=== PATIENT | female | born 1985 | race American Indian/Alaskan Native ===

== ENCOUNTER 2021-09-21 12:43 | Emergency (ER) | payer MEDICAID ==
[2021-09-21 13:01] VITALS: BP 110/69
[2021-09-21 14:08] LABS: Basophils # (Auto) 0.1 K/mm3 (0.0-0.1); Basophils % (Auto) 0.8 % (0.0-1.8); Eosinophils # (Auto) 0.1 K/mm3 (0.0-0.4); Eosinophils % (Auto) 1.7 % (0.0-4.3); Hematocrit 40.9 % (30.3-42.9); Hemoglobin 13.7 gm/dl (10.1-14.3); Lymphocytes # (Auto) 2.7 K/mm3 (1.2-5.4); Mean Corpuscular HGB Conc 34 % (30-34); Mean Corpuscular Volume 98 fl (79-97); Monocytes # (Auto) 0.9 K/mm3 (0.0-0.8); Monocytes % (Auto) 12.3 % (0.0-7.3); Platelet Count 250 K/mm3 (140-440); Red Blood Count 4.19 M/mm3 (3.65-5.03); Red Cell Distribution Width 13.8 % (13.2-15.2)
--- NOTE | 2021-09-21 14:17 | Emergency Department Report ---
Blank Doc - Documentation Documentation: 36-year-old female who presents with chest pain and shortness of breath. 1- This is a initial triage assessment/medical screening only. Full assessment and work-up will be completed once the patient is in proper hospital gown, ED bed and in a private room setting. This initial assessment/diagnostic orders/clinical plan/ treatment(s) is/are subject to change based on pt's health status, clinical progression and re-assessment by fellow clinical providers in the ED. Further treatment and workup at subsequent clinical providers discretion. Patient/guardians urged not to elope from ED as their condition may be serious if not clinically assessed and managed. 2-cardiac work-up The patient was evaluated in the emergency department for symptoms described in the history of present illness. He/she was evaluated in the context of the global COVID-19 pandemic, which necessitated consideration that the patient might be at risk for infection with the virus that causes COVID-19. Institutional protocols and algorithms that pertain to the evaluation of patients at risk for COVID-19 are in a state of rapid change based on information released by regulatory bodies including the CDC and federal and state organizations. These policies and algorithms were followed during the patient's care in the emergency department. Please note that these policies, procedures and recommendations changed on a rapid basis.
[2021-09-21 14:22] LABS: INR 0.96 (0.87-1.13)
[2021-09-21 14:23] LABS: Alanine Aminotransferase 19 units/L (7-56); Albumin 4.3 g/dL (3.9-5); Blood Urea Nitrogen 11 mg/dL (7-17); Hemolysis Index 5; Partial Thromboplastin Time 30.5 Sec. (24.2-36.6)
--- NOTE | 2021-09-21 14:32 | XRay Report ---
XR chest routine 2V INDICATION / CLINICAL INFORMATION: Chest Pain. COMPARISON: None available. FINDINGS: SUPPORT DEVICES: None. HEART /PULMONARY VASCULATURE: No significant abnormality. LUNGS / PLEURA: No evidence of acute pulmonary or pleural abnormality. No pneumothorax. ADDITIONAL FINDINGS: No significant additional findings. IMPRESSION: 1. No acute findings. Signer Name: Hector Chavez MD Signed: 09/21/2021 2:28 PM Workstation Name: [id number]
[2021-09-21 15:13] LABS: BUN/Creatinine Ratio 18
[2021-09-21] MEDS ORDERED: ASPIRIN 81 MG TAB CHEW PO ONE ×2 (16:01→18:21)
[2021-09-21] MEDS ORDERED: MORPHINE 4 MG/1 ML INJ IV ONE ×2 (16:02→18:21)
[2021-09-21] MEDS ORDERED: ONDANSETRON 4 MG/2 ML INJ IV ONE ×2 (16:02→18:21)
--- NOTE | 2021-09-21 17:37 | Cat Scan Report ---
. CTA CHEST WITH CONTRAST INDICATION / CLINICAL INFORMATION: CHEST PAIN - R/O PE. TECHNIQUE: Axial CT images were obtained through the chest after injection of 80 ml Omnipaque 350 IV contrast. 3 plane MIP and/or 3D reconstructions were produced. All CT scans at this location are perf ormed using CT dose reduction for ALARA by means of automated exposure control. COMPARISON: None available. FINDINGS: PULMONARY EMBOLUS: Positive. Most proximal level of embolus is Right Segmental Pulmonary Artery. Pulm onary embolus seen and subsegmental branches in the right middle lobe. THORACIC AORTA: No significant abnormality. HEART: No significant abnormality. CORONARY ARTERY CALCIFICATION: Absent -- None. MEDIASTINUM / KODI: No significant abnormality. PLEURA: No pleural effusion. No pneumothorax. LUNGS: No acute air space or interstitial disease. ADDITIONAL FINDINGS: None. UPPER ABDOMEN: No acute findings. SKELETAL STRUCTURES: No significant osseous abnormality. IMPRESSION: 1. Small pulmonary embolism seen in the segmental branches in the right middle lobe. 2. No other acute findings. Findings discussed with Dr. Solitario at 4:33 PM central time. Signer Name: Jose Giraldo MD Signed: 09/21/2021 5:33 PM Workstation Name: [id number]
[2021-09-21] MEDS ORDERED: ENOXAPARIN 100 MG/1 ML INJ SUB-Q ONE (18:10)
--- NOTE | 2021-09-21 18:27 | Emergency Department Report ---
ED Chest Pain HPI - General Chief Complaint: Dyspnea/Respdistress Stated Complaint: RT UPPER PAIN Time Seen by Provider: 09/21/21 12:59 Source: patient Mode of arrival: Ambulatory Limitations: No Limitations - History of Present Illness Initial Comments: Patient is a 36-year-old -[place] female with a history of PE on who is not on any anticoagulation presents to the ED with complaint of acute onset persistent right-sided chest pain that radiates to the mid posterior thoracic area for the last 4 days, worse in the last 2 days. Patient states that the pain is worse with any movement or exertion. Patient states that she has not been on any anticoagulation since 2017 because "I did not like giving myself shots". Patient states that she has not followed up with any primary care physician regarding her history of PE. Patient denies dizziness, syncope, shortness of breath, neck pain, palpitation, fever, chills, cough, lightheadedness, dizziness, headache, abdominal pain, nausea and vomiting or diarrhea, traumatic injury or fall. MD Complaint: chest pain (right sided chest pain), other (nausea) -: Sudden, days(s) (2) Onset: during exertion Pain Location: right chest Pain Radiation: back Severity: severe Severity scale (0 -10): 8 Quality: aching, sharp, pressure Consistency: constant Improves With: nothing Worsens With: exertion, inspiration Context: other (h/o PE and not on medication) re: denies: nausea, vomting, diaphoresis, dyspnea, sense of impending doom Other Symptoms: denies: cough, fever, syncope, rash, acid taste in mouth, leg swelling, palpitations, burping Treatments Prior to Arrival: none - Related Data Previous Rx's Medication Instructions Recorded Last Taken Type metroNIDAZOLE [Flagyl] 500 mg PO Q8HR #30 tablet 06/22/15 Unknown Rx Apixaban [Eliquis starter pack] 5 mg PO DAILY #90 tab 09/21/21 Unknown Rx Baclofen 20 mg PO Q12H PRN #20 tab 09/21/21 Unknown Rx traMADoL [Ultram] 50 mg PO Q6HR PRN #15 tablet 09/21/21 Unknown Rx Allergies Allergy/AdvReac Type Severity Reaction Status Date / Time No Known Allergies Allergy Verified 09/21/21 12:59 Heart Score - HEART Score History: Slightly suspicious EKG: Normal Age: < 45 Risk factors: No known risk factors Troponin: < normal limit HEART Score: 0 - EKG Read Time Time EKG Completed: 13:08 EKG Read Time: 13:15 - Critical Actions Critical Actions: 0-3 pts:0.9-1.7%risk of adverse cardiac event.Candidate for discharge ED Review of Systems ROS: Stated complaint: RT UPPER PAIN Other details as noted in HPI Constitutional: denies: chills, fever Eyes: denies: eye pain, eye discharge, vision change ENT: congestion. denies: ear pain, throat pain Respiratory: denies: cough, shortness of breath, wheezing Cardiovascular: chest pain (Right-sided chest pain). denies: palpitations, dyspnea on exertion, edema, syncope, paroxysmal nocturnal dyspnea Endocrine: no symptoms reported Gastrointestinal: denies: abdominal pain, nausea, vomiting, diarrhea Genitourinary: denies: urgency, dysuria, discharge Musculoskeletal: denies: back pain, joint swelling, arthralgia Skin: denies: rash, lesions Neurological: denies: headache, weakness, paresthesias Psychiatric: denies: anxiety, depression Hematological/Lymphatic: denies: easy bleeding, easy bruising ED Past Medical Hx - Past Medical History Previous Medical History?: Yes Hx Pulmonary Embolism: Yes - Surgical History Additional Surgical History: - Social History Smoking Status: Current Every Day Smoker Substance Use Type: Alcohol - Medications Home Medications: Home Medications Medication Instructions Recorded Confirmed Last Taken Type metroNIDAZOLE [Flagyl] 500 mg PO Q8HR #30 tablet 06/22/15 Unknown Rx Apixaban [Eliquis starter pack] 5 mg PO DAILY #90 tab 09/21/21 Unknown Rx Baclofen 20 mg PO Q12H PRN #20 tab 09/21/21 Unknown Rx traMADoL [Ultram] 50 mg PO Q6HR PRN #15 tablet 09/21/21 Unknown Rx ED Physical Exam - General Limitations: No Limitations General appearance: alert, in no apparent distress - Head Head exam: Present: atraumatic, normocephalic, normal inspection - Eye Eye exam: Present: normal appearance, PERRL, EOMI Pupils: Present: normal accommodation - ENT ENT exam: Present: normal exam, normal orophraynx, mucous membranes moist, TM's normal bilaterally, normal external ear exam - Neck Neck exam: Present: normal inspection, full ROM. Absent: tenderness - Respiratory Respiratory exam: Present: normal lung sounds bilaterally. Absent: respiratory distress, wheezes, rales, rhonchi, chest wall tenderness, accessory muscle use, decreased breath sounds, prolonged expiratory - Cardiovascular Cardiovascular Exam: Present: regular rate, normal rhythm, normal heart sounds. Absent: systolic murmur, diastolic murmur, rubs, gallop - GI/Abdominal GI/Abdominal exam: Present: soft, normal bowel sounds. Absent: tenderness, guarding, rebound, hyperactive bowel sounds, hypoactive bowel sounds, o rganomegaly - Extremities Exam Extremities exam: Present: normal inspection, full ROM, normal capillary refill. Absent: tenderness - Back Exam Back exam: Present: normal inspection, full ROM. Absent: tenderness, CVA tend erness (R), CVA tenderness (L), muscle spasm - Neurological Exam Neurological exam: Present: alert, oriented X3, CN II-XII intact, normal gait, reflexes normal - Psychiatric Psychiatric exam: Present: normal affect, normal mood, anxious - Skin Skin exam: Present: warm, dry, intact, normal color. Absent: rash ED Course Vital Signs 09/21/21 09/21/21 12:48 13:00 Temperature 98.6 F Pulse Rate 83 Respiratory 18 Rate Blood Pressure 110/69 [Left] O2 Sat by Pulse 99 100 Oximetry CEDRIC score - Cedric Score Age > 65: (0) No Aspirin use within the Past 7 Days: (0) No 3 or more CAD Risk Factors: (0) No 2 or more Angina events in past 24 hrs: (0) No Known CAD with more than 50% Stenosis: (0) No Elevated Cardiac Markers: (0) No ST Deviation Greater than 0.5mm: (0) No CEDRIC Score: 0 ED Medical Decision Making - Lab Data Result diagrams: 09/21/21 13:11 09/21/21 13:11 - EKG Data EKG shows normal: sinus rhythm Rate: normal - EKG Data Interpretation: normal EKG 09/21/21 18:39 EKG shows normal sinus rhythm with a ventricular rate of [address] or T wave abnormalities. - Radiology Data Radiology results: report reviewed, image reviewed [facility] [address] [place] [address] Cat Scan Report Signed Patient: MARSHAL AGOSTO MR#: [id number] : 1985 Acct:[id number] Age/Sex: 36 / F ADM Date: 09/21/21 Loc: ED Attending Dr: Ordering Physician: FARTUN YOON Date of Service: 09/21/21 Procedure(s): CT angio chest Accession Number(s): [id number] cc: FARTUN YOON . CTA CHEST WITH CONTRAST INDICATION / CLINICAL INFORMATION: CHEST PAIN - R/O PE. TECHNIQUE: Axial CT images were obtained through the chest after injection of 80 ml Omnipaque 350 IV contrast. 3 plane MIP and/or 3D reconstructions were produced. All CT scans at this location are performed using CT dose reduction for ALARA by means of automated exposure control. COMPARISON: None available. FINDINGS: PULMONARY EMBOLUS: Positive. Most proximal level of embolus is Right Segmental Pulmonary Artery. Pulmonary embolus seen and subsegmental branches in the right middle lobe. THORACIC AORTA: No significant abnormality. HEART: No significant abnormality. CORONARY ARTERY CALCIFICATION: Absent -- None. MEDIASTINUM / KODI: No significant abnormality. PLEURA: No pleural effusion. No pneumothorax. LUNGS: No acute air space or interstitial disease. ADDITIONAL FINDINGS: None. UPPER ABDOMEN: No acute findings. SKELETAL STRUCTURES: No significant osseous abnormality. IMPRESSION: 1. Small pulmonary embolism seen in the segmental branches in the right middle lobe. 2. No other acute findings. Findings discussed with Dr. Solitario at 4:33 PM central time. Signer Name: Jose Giraldo MD Signed: 09/21/2021 5:33 PM Workstation Name: [id number] Transcribed By: DEBBY Dictated By: Jose Giraldo MD Electronically Authenticated By: Jose Giraldo MD Signed Date/Time: 09/21/211732 DD/ 28 TD/TT: Print Cancel [facility] [address] [place] [address] XRay Report Signed Patient: MARSHAL AGOSTO MR#: [id number] : 1985 Acct:[id number] Age/Sex: 36 / F ADM Date: 09/21/21 Loc: ED Attending Dr: Ordering Physician: FARNAZ RIOS NP Date of Service: 09/21/21 Procedure(s): XR chest routine 2V Accession Number(s): [id number] cc: FARNAZ RIOS NP Fluoro Time In Minutes: XR chest routine 2V INDICATION / CLINICAL INFORMATION: Chest Pain. COMPARISON: None available. FINDINGS: SUPPORT DEVICES: None. HEART /PULMONARY VASCULATURE: No significant abnormality. LUNGS / PLEURA: No evidence of acute pulmonary or pleural abnormality. No pneumothorax. ADDITIONAL FINDINGS: No significant additional findings. IMPRESSION: 1. No acute findings. Signer Name: Shivani Chavez MD Signed: 09/21/2021 2:28 PM Workstation Name: [id number] Transcribed By: JS Dictated By: SHIVANI CHAVEZ MD Electronically Authenticated By: SHIVANI CHAVEZ MD Signed Date/Time: 09/21/211427 DD/ 26 TD/TT: - Medical Decision Making This is a 36-year-old -[place] female with a history of PE on who is not on any anticoagulation presents to the ED with complaint of acute onset persistent right-sided chest pain that radiates to the mid posterior thoracic ar ea for the last 4 days, worse in the last 2 days. Patient states that the pain is worse with any movement or exertion. Patient states that she has not been on any anticoagulation since 2017 because "I did not like giving myself shots". Patient states that she has not followed up with any primary care physician regarding her history of PE. In the ED, patient is alert and oriented x3 and is not in any distress. Lab test results were reviewed and are all nonactionable. Chest x-ray showed no acute cardiopulmonary abnormalities or pneumonitis. EKG shows normal sinus rhythm with a ventricular rate of 74 bpm and probable left atrial enlargement, also anteroseptal infarct age-indeterminate. Based on the patient's history of PE and not on any anticoagulation, chest CTA was ordered and it showed a small pulmonary embolism seen in the segmental branches in the right middle lobe. Patient was offered admission to the hospital for further anticoagulation but the patient declined. I therefore discussed this findings with the ED attending physician Dr. Alonso Gonzalez who advised that the patient may sign out AGAINST MEDICAL ADVICE if she declines admissions. Patient was therefore treated in the ED with Lovenox 1 mg/kg subcutaneous injection, treated for pain in the ED and signed out AGAINST MEDICAL ADVICE in the ED patient was given a prescription for Eliquis and advised to follow-up with her primary care physician in 5 to 7 days for reevaluation. Patient was otherwise advised return to the ED immediately if symptoms get worse. - Differential Diagnosis PE; ACS; dissection; pneumonia; costochondritis; Critical care attestation.: If time is entered above; I have spent that time in minutes in the direct care of this critically ill patient, excluding procedure time. ED Disposition Clinical Impression: Right-sided chest pain, Pulmonary embolism on right Disposition: 07 LEFT AGAINST MEDICAL ADVICE Is pt being admited?: No Does the pt Need Aspirin: No Condition: Undetermined Instructions: Nonspecific Chest Pain, Adult, Pulmonary Embolism Additional Instructions: All lab test results are reviewed and are all nonactionable. Chest CTA showed right-sided pulmonary embolism. However you have a elected to sign out AGAINST MEDICAL ADVICE from the ED. Therefore take medication as advised, follow-up with your primary care physician in 5 to 7 days for reevaluation. Return to the ED immediately if symptoms get worse. Prescriptions: Baclofen 20 mg PO Q12H PRN #20 tab PRN Reason: Muscle Spasm Apixaban [Eliquis starter pack] 5 mg PO DAILY #90 tab traMADoL [Ultram] 50 mg PO Q6HR PRN #15 tablet PRN Reason: Pain Referrals: [facility] [Provider Group] - 3-5 Days Forms: AMA Form Time of Disposition: 18:46 Print Language: EAST TIMOR[place]
--- NOTE | 2021-09-22 14:07 | Electrocardiograph Report ---
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
== END 2021-09-21 19:34 | disposition left against medical advice (07) ==
LOC: ED 12:43
DX: R07.9 Chest pain, unspecified (principal); I26.99 Other pulmonary embolism without acute cor pulmonale
CPT/HCPCS: 36415; 71046; 71275; 80053; 84484; 84703; 85025; 85610; 85730; 93005; 96372; 96374; 96375; 99284; J1650; J2270; J2405; Q9967